=== PATIENT | male | born 1970 | race Caucasian/White ===

== ENCOUNTER 2022-12-07 07:02 | Day surgery (SDC) | payer BC, OTHER ==
[2022-12-03 09:56] LABS: Potassium 4.2 mEq/L (3.5-5.1)
--- NOTE | 2022-12-04 15:37 | EKG ---
Test Date: 2022-12-03 Test Time: 09:11:16 Numerical Control Lathe Operator: VENKATA MEASUREMENT RESULTS: Intervals: Rate: 73 DE: 150 QRSD: 80 QT: 364 QTc: 401 [place]: P: 61 DE: 150 QRS: 18 T: 70 INTERPRETIVE STATEMENTS: Normal sinus rhythm Possible Left atrial enlargement Borderline ECG No previous ECG available for comparison Electronically Signed On 12-04-22 15:34:37 CDT by Iban Harrell
[2022-12-07] MEDS ORDERED: Ringers Lactate 1,000 ML IV ONE (07:26)
[2022-12-07] MEDS ORDERED: LIDOCAINE 1% MPF 5 ML VIAL ONE (07:45)
[2022-12-07] MEDS ORDERED: propofoL 200 MG/20 ML VIAL IV ONE ×2 (07:45)
[2022-12-07 09:35] VITALS: BP 133/67; TEMP 97.2; O2SAT 99
== END 2022-12-07 09:26 | disposition home or self-care (01) ==
LOC: OR 07:02
PROVIDERS: ATTEND Surgery
PROC: 0DBN8ZX Excision of Sigmoid Colon, Via Natural or Artificial Opening Endoscopic, Diagnostic (ICD-10-PCS; 2022-12-07)
PROC: 0DBP8ZX Excision of Rectum, Via Natural or Artificial Opening Endoscopic, Diagnostic (ICD-10-PCS; 2022-12-07)
PROC: 0DBM8ZX Excision of Descending Colon, Via Natural or Artificial Opening Endoscopic, Diagnostic (ICD-10-PCS; principal; 2022-12-07 08:30)
DX: R19.5 Other fecal abnormalities (principal); I10 Essential (primary) hypertension; E78.00 Pure hypercholesterolemia, unspecified; D12.4 Benign neoplasm of descending colon; K64.8 Other hemorrhoids; D12.5 Benign neoplasm of sigmoid colon; D12.8 Benign neoplasm of rectum
CPT/HCPCS: 93005; 80048; 36415; 88305; 45380; J2704 ×2; J2001; J7120